=== PATIENT | male | born 1975 | race Caucasian/White ===

== ENCOUNTER → 2017-12-23 | Outpatient (CLI) | payer OTHER | LOC: BMCIMAGING 09:22 | PROVIDERS: ATTEND Orthopaedic Surgery Hand Surgery | DX: M25.561 Pain in right knee (principal); M25.511 Pain in right shoulder; M25.562 Pain in left knee; M25.512 Pain in left shoulder; M25.762 Osteophyte, left knee; M25.761 Osteophyte, right knee ==